=== PATIENT | male | born 1975 | race African-American/Black ===

== ENCOUNTER 2020-09-22 18:09 | Emergency (ER) | payer SELFPAY ==
[~2020-09-22] VITALS: Ht 193 cm; Wt 88.5 kg
[2020-09-22 18:46] VITALS: BP 132/88
[2020-09-22] MEDS ORDERED: LIDOCAINE 0.5%-EPI 1:200,000 50 ML VIAL TP ONE (19:30)
[2020-09-22] MEDS ORDERED: LIDOCAINE 1%-EPI 1:100,000 20 ML VIAL ONE (19:32)
== END 2020-09-22 20:31 | disposition home or self-care (01) ==
LOC: ER 18:12
DX: S01.111A Laceration without foreign body of right eyelid and periocular area, initial encounter (principal); V49.49XA Driver injured in collision with other motor vehicles in traffic accident, initial encounter; Y93.89 Activity, other specified; Y92.413 State road as the place of occurrence of the external cause; Y99.8 Other external cause status
CPT/HCPCS: 12011; 99282; J3490